=== PATIENT | male | born 1980 | race Caucasian/White ===

== ENCOUNTER 2016-04-11 14:20 | Outpatient (CLI) ==
--- NOTE | 2016-04-11 16:15 | DI ---
EXAM: CHEST FRONTAL AND LATERAL VIEWS HISTORY: Cough. COMPARISON: None FINDINGS: Heart size and mediastinal contour within normal limits. There are scattered calcifica tions suggesting old granulomatous disease. No acute infiltrates are seen. There is no consolidati on, visible pleural fluid or pneumothorax. Bones reveal no acute fracture. IMPRESSION: No acute cardiopulmonary process. ]
== END 2016-04-11 14:21 | disposition home or self-care (01) ==
LOC: RAD 14:20
PROVIDERS: ATTEND Family Medicine
DX: R05 Cough (principal)